=== PATIENT | female | born 1990 | race Caucasian/White ===

== ENCOUNTER 2018-10-06 17:52 | Emergency (ER) | payer SELFPAY ==
[2018-10-06] VITALS (7 sets, daily range): BP systolic 130–138; BP diastolic 61–84
[~2018-10-06] VITALS: Ht 162.6 cm; Wt 54.4 kg
[2018-10-06] MEDS ORDERED: DiphenhydrAMINE 50mg/ml Inj IM ONE (18:00)
[2018-10-06] MEDS ORDERED: ZyPREXA Zydis 10mg tab ORAL ONE (18:00)
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
[2018-10-06] MEDS ORDERED: LORazepam Inj 2mg/ml 1ml IM ONE ×2 (18:45→19:30)
[2018-10-06] MEDS ORDERED: Haloperidol Decanoate 50mg Inj IM ONE (18:45)
[2018-10-06 18:55] LABS: BASOPHILS % (AUTO) 0.8 % (0.0-2.0); EOSINOPHILS % (AUTO) 0.8 % (0.0-3.0); HEMATOCRIT 42.4 % (37.0-47.0); HEMOGLOBIN 14.5 G/DL (12.0-16.0); LYMPHOCYTES % (AUTO) 17.8 % (20.0-45.0); MEAN CORPUSCULAR VOLUME 90 FL (80-99); MONOCYTES % (AUTO) 6.9 % (1.0-10.0); NEUTROPHILS % (AUTO) 73.8 % (45.0-75.0); PLATELET COUNT 342 K/UL (150-450); WHITE BLOOD COUNT 13.9 K/UL (4.8-10.8)
[2018-10-06 19:02] LABS: ANION GAP 14 mmol/L (5-15); BLOOD UREA NITROGEN 15 mg/dL (7-18); CARBON DIOXIDE 22 MMOL/L (21-32); CHLORIDE 102 MMOL/L (98-107); CREATININE 1.1 MG/DL (0.55-1.30); SODIUM 138 MMOL/L (136-145)
[2018-10-06 19:06] LABS: ALANINE AMINOTRANSFERASE 23 U/L (12-78); ALBUMIN 4.2 G/DL (3.4-5.0); ALKALINE PHOSPHATASE 74 U/L (46-116); ASPARTATE AMINO TRANSFERASE 20 U/L (15-37); BILIRUBIN,TOTAL 0.8 MG/DL (0.2-1.0)
[2018-10-06] MEDS ORDERED: LORazepam Inj 2mg/ml 1ml IV ONE (19:45)
[2018-10-07] MEDS ORDERED: ZYPREXA5 MG ORAL (05:52)
[2018-10-07 06:19] VITALS: BP 124/67
== END 2018-10-07 06:05 | disposition home or self-care (01) ==
LOC: EDBD 17:52 → EMR 19:22
DX: F31.89 Other bipolar disorder (principal); F15.90 Other stimulant use, unspecified, uncomplicated; F20.9 Schizophrenia, unspecified; Z91.19 Patient's noncompliance with other medical treatment and regimen; Z88.8 Allergy status to other drugs, medicaments and biological substances
CPT/HCPCS: 36415; 80053; 80307; 81025; 85025; 93005; 96360; 96372; 99284; G0480; J1200; J1631; 80329

== ENCOUNTER 2018-10-10 17:34 | Emergency (ER) | payer OTHER ==
[~2018-10-10] VITALS: Ht 167.6 cm; Wt 59.0 kg
[~2018-10-10 17:34] MED LIST: ZYPREXA5 MG ORAL
[2018-10-10 17:35] VITALS: BP 124/67
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
[2018-10-10] MEDS ORDERED: Ziprasidone 20mg cap ORAL ONE (18:15)
[2018-10-10 18:20] LABS: EOSINOPHILS % (AUTO) 3.8 % (0.0-3.0); HEMATOCRIT 37.9 % (37.0-47.0); LYMPHOCYTES % (AUTO) 24.5 % (20.0-45.0); MEAN CORPUSCULAR VOLUME 90 FL (80-99); MONOCYTES % (AUTO) 6.5 % (1.0-10.0); NEUTROPHILS % (AUTO) 64.2 % (45.0-75.0); PLATELET COUNT 333 K/UL (150-450); RED BLOOD COUNT 4.21 M/UL (4.20-5.40); WHITE BLOOD COUNT 8.7 K/UL (4.8-10.8)
[2018-10-10 18:34] LABS: ANION GAP 9 mmol/L (5-15); BLOOD UREA NITROGEN 8 mg/dL (7-18); CALCIUM 8.8 MG/DL (8.5-10.1); CARBON DIOXIDE 28 MMOL/L (21-32); CHLORIDE 106 MMOL/L (98-107); CREATININE 0.9 MG/DL (0.55-1.30); POTASSIUM 3.3 MMOL/L (3.5-5.1); SODIUM 143 MMOL/L (136-145)
[2018-10-10 18:38] LABS: ALANINE AMINOTRANSFERASE 27 U/L (12-78); ALBUMIN 3.6 G/DL (3.4-5.0); ALKALINE PHOSPHATASE 91 U/L (46-116); ASPARTATE AMINO TRANSFERASE 24 U/L (15-37); BILIRUBIN,TOTAL 0.3 MG/DL (0.2-1.0)
[2018-10-10 19:59] VITALS: BP 122/68
[2018-10-10 22:33] LABS: APPEARANCE,URINE CLOUDY; BILIRUBIN, URINE NEGATIVE (NEGATIVE); COLOR,URINE ORANGE; GLUCOSE, URINE (UA) NEGATIVE (NEGATIVE); KETONES,URINE 1+ (NEGATIVE); LEUKOCYTE ESTERASE ,URINE 2+ (NEGATIVE); NITRITE,URINE NEGATIVE (NEGATIVE); PH,URINE 8 (4.5-8.0); PROTEIN,URINE 2+ (NEGATIVE); UROBILINOGEN,URINE 1 MG/DL (0.0-1.0)
[2018-10-10 23:00] VITALS: BP 128/66
[2018-10-11 02:49] VITALS: BP 124/64
[2018-10-11 06:58] VITALS: BP 102/54
[2018-10-11] MEDS ORDERED: UNOBMED (09:40)
[2018-10-11 09:50] VITALS: BP 110/60
[2018-10-11 10:48] VITALS: BP 110/60
== END 2018-10-11 10:51 ==
LOC: EDBD 17:34 → EMR 17:47
DX: F91.9 Conduct disorder, unspecified (principal); F20.9 Schizophrenia, unspecified; F31.9 Bipolar disorder, unspecified
CPT/HCPCS: 36415; 80053; 80307; 81003; 81025; 85025; 87086; 96360; 99285; G0480; 80329